=== PATIENT | male | born 1995 | race Caucasian/White ===

== ENCOUNTER 2017-07-27 23:33 | Emergency (ER) | payer OTHER, BC ==
[~2017-07-27] VITALS: Ht 175.3 cm; Wt 117.9 kg
[~2017-07-27 23:33] MED LIST: CELEXA40 MG PO; LORTAB 5/500 501 TAB PO; MEDROL 4MG. DOSE4 MG PO; PHENERGAN 25MG.25 M1 PO; TYLENOL W/CODEI1 TA2 PO; VALIUM5 MG PO; ZITHROMAX Z-PA250 M1 PO; ZOLOFT100 MG PO
[2017-07-27] MEDS ORDERED: INDERAL 20MG. T20 MG PO (23:46)
--- NOTE | 2017-07-28 00:06 | Emergency Room Report ---
History of Present Illness Time Seen by MD Briceno Presenting Problem in Triage Pt arrived:Walked Presenting Problem:S/P FALL FROM LADDER APPROX 7 FEET AND HIT HEAD ON CONCRETE. NOW C/O HEADACHE. DENIES LOSS OF CONSCIOUSNESS. 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 N Clinical Suspician of Infection? N Mental Status: 1 - Regular (Normal Baseline) Sepsis Risk:Low Sepsis Risk Have you (or family members/close friends) recently traveled outside the [place]? N If Yes, where/when: Have you had exposure to infectious disease within the past month? N TB? Other? Specify: Source patient, RN notes reviewed, family, old records Exam Limitations no limitations Comment pt with fall off ladder at work about 6 feet with heqad and neck injury with no chest or abd apin and no loc - occurred just prior to arrival - workman comp Cardiac Chest Pain Chest pain indicative of cardiac No Timing/Duration this evening Severity moderate ALLERGIES Coded Allergies: NO KNOWN ALLERGIES (07/27/17) Home Medications Reported Medications Citalopram Hydrobromide (Celexa) 5 MG PO DAILY Propranolol Hcl (Inderal 20MG. Tablet) 20 MG PO TID #90 History Medical History General CAD? No Angina: No [place]: No Hypertension? No Hyperlipidemia? No CHF? No DVT? No PE? No COPD? No Asthma? No Anemia? No GERD? No Gastric ulcers? No GI Bleed? No Hernia? No Thyroid Problems? No Hypothyroidism? No CVA? No Seizures? No Diabetes? No Renal Insuffiency? No End Stage Renal Disease? No UTI? No Stones? No BPH? No GB Disease: No Nephritic Syndrome? No Asplenia? No Hepatitis? No Sickle Cell Disease? No Arthritis? No Migraines? No Cataracts? No Glaucoma? No MRSA? No HIV? No TB? No Anxiety? No Depression? No Cancer? No Immunization Hx DT/Tetanus 1-4 YRS Flu NEVER Pneumonia NEVER Surgical Hx Previous Surgery?N Social History Smoking Hx Smoker: Current Every Day Smoker Tobacco: Yes Type Cigarettes Alcohol Alcohol: No Drugs none Review of Systems All Other Systems Reviewed and Negative Constitutional denies fever Eyes denies drainage ENT denies: ear discharge, epistaxis, throat pain. Respiratory denies cough, denies shortness of breath, denies wheezing Cardiovascular denies chest pain, denies syncope Gastrointestinal denies abdominal pain, denies diarrhea, denies vomiting Genitourinary denies: dysuria, frequency, hesitancy, hematuria. Musculoskeletal see HPI, denies back pain, denies joint pain, denies joint swelling, neck pain Skin denies rash Psychiatric/Neurological see HPI, headache, denies seizure Physical Exam Vital Signs Vital Signs Date Time Temp Pulse Resp B/P Pulse O2 O2 Flow FiO2 Ox Delivery Rate 07/28 0051 98.5 73 16 139/59 96 07/27 2338 98.2 89 20 96 - WBC >12,000 or <4,000 or 10% bands? 2 or more SIRS Criteria Met? B/P: MAP: Creatinine >2.0? UA output<0.5ml/kg/hr for 2 hrs? Platelet count >100,000? Lactate >2.0mmol/1? INR >1.2 or PTT > than 60 sec? Evidence of Organ Dysfunction? Provider documented clinical suspician of infection? N Sepsis Criteria Count: 1 Sepsis Risk: Low Sepsis Risk General Appearance no apparent distress Eye Exam - bilateral eye PERRL, bilateral eye EOMI Ear, Nose, Throat normal ENT inspection Neck limited range of motion, tender lateral Respiratory Status No: respiratory distress. Lung Sounds bilateral: lungs clear. 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 No Results/Orders Orders Procedure Date/time Status DIET-NOTHING BY MOUTH 07/[address] CERVICAL SPINE W/O CONT. 07/[address] SCAN REQ 07/28 0000 Complete PELVIS AP ONLY 07/28 0000 Active CHEST(2 VIEWS-NOT PORTABLE) 07/[address] HEAD W/O CONTRAST 07/[address] HEAD REQ 07/27 2347 Complete XRAY/CT/US XRAY/CT/US 1 XRAY chest, pelvis XR interpretation by reviewed by me Xray Results no fracture seen XRAY/CT/US 2 CT head, C-spine CT interpretation by discussed w/radiologist Time results known: 52 CT Results no fracture seen Departure Departure Time of Disposition 004 Disposition DC Home or Self Care(routine) Clinical Impression Primary Impression: Head contusion Qualifiers: Encounter type: initial encounter Contusion of head detail: scalp Qualified Code: S00.03XA - Contusion of scalp, initial encounter Secondary Impressions: Cervical strain, acute Qualifiers: Encounter type: initial encounter Qualified Code: S16.1XXA - Strain of muscle, fascia and tendon at neck level, initial encounter Condition STABLE Referrals Taiwo Garcia MD (Family) Patient Instructions DI for Concussion Additional Instructions advil/tyenol and see pcp for follow up - workman comp forms completed Discharge Counseling Counseled pt/family regarding diagnosis, test results, follow up needs ED Critical Care Critical Care No at 0055
[2017-07-28 00:56] VITALS: BP 139/59
--- NOTE | 2017-07-28 05:22 | RADIOLOGY REPORT PS360 ---
PELVIS AP ONLY HISTORY: Fall with injury and pain S/P FALL ORDERING PHYSICIAN: Bear Holder MD PATIENT AGE: 22 years COMPARISON: None FINDINGS: No fracture or dislocation is evident. No significant degenerative change. No lytic or blastic change. The SI joints have an unremarkable appearance. Unremarkable soft tissues. There is a oval sclerotic focus of the intertrochanteric region of the right femur consistent with a bone island. Small bone is present at the left ischial tuberosity IMPRESSION: No acute finding
--- NOTE | 2017-07-28 05:23 | RADIOLOGY REPORT PS360 ---
CHEST(2 VIEWS-NOT PORTABLE) HISTORY: Chest pain following injury S/P FALL ORDERING PHYSICIAN: Bear Holder MD PATIENT AGE: 22 years COMPARISON: 12/18/2008 FINDINGS: The cardiomediastinal silhouette and pulmonary vascularity are within normal limits. The lungs are clear without infiltrates, suspicious nodules, or pleural effusions. No acute bony abnormalities. IMPRESSION: Negative chest, no acute finding
--- NOTE | 2017-07-28 05:34 | RADIOLOGY REPORT PS360 ---
CT CERVICAL SPINE W/O CONT INDICATION: Neck pain following injury FELL OFF LADDER ORDERING PHYSICIAN: Bear Holder MD PATIENT AGE: 22 years COMPARISON: None TECHNIQUE: Axial images are obtained without contrast. Sagittal and coronal reformatted images are reviewed as well. FINDINGS: There is normal alignment. There is slight reversal cervical lordosis which may be due to patient positioning or muscle spasm. No fracture or dislocation. The disc spaces are well-preserved. Lung apices are clear. No prevertebral soft tissue swelling. Scattered small lymph nodes present in the neck. IMPRESSION: 1. No acute fracture. 2. Slight reversal cervical lordosis. 3. Scattered small lymph nodes in the neck
--- NOTE | 2017-07-28 05:36 | RADIOLOGY REPORT PS360 ---
CT HEAD W/O CONTRAST HISTORY: Headache following injury, trauma to the back of the head C/O HEADACHE AFTER FALLING OFF LADDER ORDERING PHYSICIAN: Bear Holder MD PATIENT AGE: 22 years COMPARISON: 04/12/2015 TECHNIQUE: Axial images obtained without contrast. Brain and bone windows reviewed. FINDINGS: No midline shift, mass effect, intracranial hemorrhage, hydrocephalus, or extra-axial fluid collection is evident. The calvarium has an unremarkable appearance. No mastoid effusion. The visualized paranasal sinuses are unremarkable. IMPRESSION: Negative CT head without contrast. No acute finding.
== END 2017-07-28 01:04 | disposition home or self-care (01) ==
LOC: ER 23:33
DX: S00.03XA Contusion of scalp, initial encounter (principal); W11.XXXA Fall on and from ladder, initial encounter; Y92.89 Other specified places as the place of occurrence of the external cause; Y99.0 Civilian activity done for income or pay; Z79.899 Other long term (current) drug therapy; F17.210 Nicotine dependence, cigarettes, uncomplicated; S16.1XXA Strain of muscle, fascia and tendon at neck level, initial encounter; S20.419A Abrasion of unspecified back wall of thorax, initial encounter

== ENCOUNTER 2017-08-11 22:15 | Observation (INO) | payer BC ==
[~2017-08-11] VITALS: Ht 172.7 cm; Wt 129.0 kg
[~2017-08-11 22:15] MED LIST changes: +INDERAL 20MG. T20 MG PO
[2017-08-11 22:18] VITALS: BP 146/89
[2017-08-11 22:33] LABS: URINE BILIRUBIN - DIPSTICK NEGATIVE (NEG); URINE BLOOD NEGATIVE (NEG)
--- NOTE | 2017-08-11 22:35 | Emergency Room Report ---
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 N Clinical Suspician of Infection? N Mental Status: 1 - Regular (Normal Baseline) Sepsis Risk:Possible Sepsis Risk Have you (or family members/close friends) recently traveled outside the [place]? N If Yes, where/when: Have you had exposure to infectious disease within the past month? N TB? Other? Specify: Source patient, RN notes reviewed, old records Exam Limitations no limitations Comment progressive abd pain with nausea today with no fever or diarrhea - Cardiac Chest Pain Chest pain indicative of cardiac No Timing/Duration this evening Severity moderate ALLERGIES Coded Allergies: NO KNOWN ALLERGIES (07/27/17) Home Medications Reported Medications Citalopram Hydrobromide (Celexa) 5 MG PO DAILY Propranolol Hcl (Inderal 20MG. Tablet) 20 MG PO TID #90 History Medical History General CAD? No Angina: No [place]: No Hypertension? No Hyperlipidemia? No CHF? No DVT? No PE? No COPD? No Asthma? No Anemia? No GERD? No Gastric ulcers? No GI Bleed? No Hernia? No Thyroid Problems? No Hypothyroidism? No CVA? No Seizures? No Diabetes? No Renal Insuffiency? No End Stage Renal Disease? No UTI? No Stones? No BPH? No GB Disease: No Nephritic Syndrome? No Asplenia? No Hepatitis? No Sickle Cell Disease? No Arthritis? No Migraines? No Cataracts? No Glaucoma? No MRSA? No HIV? No TB? No Anxiety? No Depression? No Cancer? No Immunization Hx Ped.Immunizations UTD No DT/Tetanus 1-4 YRS Flu NEVER Pneumonia NEVER Surgical Hx Previous Surgery?N Social History Smoking Hx Smoker: Current Every Day Smoker Tobacco: Yes Type Cigarettes Alcohol Alcohol: No Drugs none Review of Systems All Other Systems Reviewed and Negative Constitutional denies fever Eyes denies drainage ENT denies: ear discharge, epistaxis, throat pain. Respiratory denies cough, denies shortness of breath, denies wheezing Cardiovascular denies chest pain, denies palpitations, denies syncope Gastrointestinal see HPI, abdominal pain, denies constipation, nausea, vomiting Genitourinary denies: dysuria, frequency, hesitancy, hematuria. Musculoskeletal denies back pain, denies joint pain, denies joint swelling, denies neck pain Skin denies rash Psychiatric/Neurological denies headache, denies seizure Physical Exam Vital Signs Vital Signs Date Time Temp Pulse Resp B/P Pulse O2 O2 Flow FiO2 Ox Delivery Rate 08/11 2218 98.6 93 20 146/89 96 - WBC >12,000 or <4,000 or 10% bands? 2 or more SIRS Criteria Met? B/P:146/89 MAP:108 Creatinine >2.0? UA output<0.5ml/kg/hr for 2 hrs? Platelet count >100,000? Lactate >2.0mmol/1? INR >1.2 or PTT > than 60 sec? Evidence of Organ Dysfunction? Provider documented clinical suspician of infection? N Sepsis Criteria Count: 2 Sepsis Risk: Possible Sepsis Risk General Appearance no apparent distress Eye Exam - bilateral eye PERRL, bilateral eye EOMI Ear, Nose, Throat normal ENT inspection Neck supple Respiratory Status No: respiratory distress. Lung Sounds bilateral: lungs clear. 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 No Results/Orders Laboratory Tests 08/11/17 2738: Sodium 138, Potassium 3.7, Chloride 102, Carbon Dioxide 27, BUN 13, Creatinine 1.0, Estimated Creat Clear 190, Estimated GFR (MDRD) 92, Glucose 105, Calcium 9.3, Total Bilirubin 0.5, AST 30, ALT 72, Alkaline Phosphatase 80, Total Protein 8.4 H, Albumin 4.3, Globulin 4.1 H, Albumin/Globulin Ratio 1.0 L, Amylase 40, Lipase 76, WBC 13.3 H, RBC 5.84, Hgb 15.5, Hct 46.6, MCV 79.7 L, RDW 13.8, Plt Count 262, MPV 7.1 L, Gran % 80.7 H, Gran # 10.7 H, Lymphocytes % 12.8, Monocytes % 3.5, Eosinophils % 2.5, Basophils % 0.4, Lymphocytes # 1.7, Monocytes # 0.5, Eosinophils # 0.3, Basophils # 0.1, PUBS MCHC 33.2, MCH 26.5 L 08/11/172227: Urine Color YELLOW, Urine Appearance CLEAR, Urine pH 6.0, Ur Specific [place] 1.025, Urine Protein NEGATIVE, Urine Ketones NEGATIVE, Urine Blood NEGATIVE, Urine Nitrate NEGATIVE, Urine Bilirubin NEGATIVE, Urine Urobilinogen 0.2, Ur Leukocyte Esterase NEGATIVE, Urine RBC 3-5, Urine WBC 3-5, Ur Squamous Epith Cells 3-5, Urine Bacteria 1+, Urine Mucus 1+, Urine Glucose NEGATIVE Current Medication Orders Sig/Sylvia Start time Last Medication Dose Route Stop Time Status Admin Sodium Chloride 10 ML PRN PRN 08/11 2230 AC IV 08/12 2223 Orders Procedure Date/time Status DIET-NOTHING BY MOUTH 08/[address] ABD & PELVIS W/O CONTRAST 08/[address] SCAN REQ 08/11 2223 Complete IV SALINE LOCK 08/11 2223 Active URINALYSIS/COMPLETE 08/11 2223 Complete LIPASE 08/11 2223 Complete COMPLETE METABOLIC PANEL 08/11 2223 Complete CBC WITH AUTO DIFF 08/11 2223 Complete AMYLASE 08/11 2223 Complete XRAY/CT/US XRAY/CT/US CT abdomen, pelvis CT interpretation by discussed w/radiologist Time results known: 0001 CT Results abnormal (appendicitis) Departure Departure Time of Disposition 2355 Disposition Still a Patient Clinical Impression Primary Impression: Acute appendicitis Qualifiers: Acute appendicitis type: with localized peritonitis Qualified Code: K35.3 - Acute appendicitis with localized peritonitis Condition STABLE Referrals Taiwo Garcia MD (Family) discussed with dr kenyon DELCID Critical Care Critical Care No at 0001
[2017-08-11 23:08] LABS: HEMOGLOBIN 15.5 g/dL (14.1-18.0); LYMPH # 1.7 K/mm3 (0.7-4.5); LYMPH % 12.8 % (10-50)
[2017-08-12] VITALS (16 sets, daily range): BP systolic 116–153; BP diastolic 50–90
--- NOTE | 2017-08-12 05:54 | RADIOLOGY REPORT PS360 ---
CT ABD PELVIS W/O CONTRAST CLINICAL INDICATION: Epigastric abdominal pain ABD PAIN ORDERING PHYSICIAN: JASON BHARDWAJ MD PATIENT AGE: 22 years COMPARISON: None TECHNIQUE: Axial images obtained with sagittal and coronal reformats. PROCEDURE: Oral Contrast: None IV Contrast: None . FINDINGS: Lung bases are clear. Calcified nodes are present in the left infrahilar region. Mild hepatic steatosis. No radio opaque gallstones. The spleen, adrenal glands, pancreas, kidneys, ureters, and urinary bladder have an unremarkable unenhanced CT appearance. No obstructing renal or ureteral calculi. There is mild prominence of the appendix measuring up to 10 mm in diameter with stranding of the periappendiceal fat and mild thickening of the paracolic gutter consistent with acute appendicitis. No abscess or perforation apparent. No evidence of diverticulitis. The ascending and proximal transverse colon appears thickened but could be related to nondistention. No acute bony anomalies. IMPRESSION: 1. Dilated appendix with surrounding inflammatory changes consistent with acute appendicitis. No evidence of abscess or perforation. 2. Thickening of the ascending and proximal transverse colon which may be due to nondistention or colitis.
--- NOTE | 2017-08-12 07:03 | HISTORY AND PHYSICAL REPORT ---
History of Present Illness Chief Complaint: RIGHT lower quadrant pain History of Present Illness: This is a 22-year-old gentleman who presented overnight to emergency department with increasing RIGHT lower quadrant abdominal pain. No definitive fevers. Poor appetite. Some nausea. A CT scan revealed signs consistent with early appendicitis. Past Medical History Denies: CAD, hypertension, asthma, diabetes mellitus. Surgical History Previous Surgery?N Allergies Coded Allergies: No Known Allergies (08/12/17) Medications: Reported Medications Citalopram Hydrobromide (Celexa) 5 MG PO DAILY Propranolol Hcl (Inderal 20MG. Tablet) 20 MG PO TID #90 Family history Postive for: HTN. Smoking Hx Tobacco: Yes Smoker: Current Every Day Smoker Type: Cigarettes Packs/day: < 1 Pack Are you/the child exposed to second-hand smoke: Yes Alcohol Alcohol: No Hx of Drug Use Drug Use? No Review of Systems Constitutional No: chills. Skin No: bruising. Immune/allergy No: anaphalaxis. Eyes No: discharge. ENT No: nose bleed. Respiratory No: pneumonia. Cardiovascular No: palpitations. GI Positive for: nausea. No: hematemeis, hematochezia, melena. (male) No: hematuria. Musculoskeletal No: thoracic pain. Heme No: petechia. Endocrine No: polydipsia. Neurological No: change in LOC. Psychiatric No: anxious. Physical Exam VS/I&O Vital Signs Date Time Temp Pulse Resp B/P Pulse O2 O2 Flow FiO2 Ox Delivery Rate 08/12 0646 98.3 88 18 116/50 94 ROOM AIR 08/12 0617 18 08/12 0236 18 08/12 0050 81 08/12 0050 98.1 81 18 127/70 08/12 0050 98.1 81 18 127/70 97 ROOM AIR 08/12 0050 97 ROOM AIR 08/12 0031 98.6 93 20 146/89 96 08/12 0018 20 08/11 2218 98.6 93 20 146/89 96 I&O 08/12 0700 Intake Total 439 Output Total Balance 439 Intake, IV 439 Patient 129.02 kg Weight Exam General appearance no acute distress, alert, oriented, well nourished Neck full ROM Respiratory no distress Cardiovascular regular rate and rhythm Abdomen soft (mild TTP in RLQ) Extremities moves all, no evidence of DVT Musculoskeletal full ROM, normal strength, normal tone Neurological CNII-XIII grossly intact, normal speech Psychiatric normal mood Skin no gross abnormalities Dx/assessment/plan Problem List 1. Acute appendicitis Code status: full code Discussed with: patient Plan: Antibiotics Pain management Laparoscopic appendectomy-I have discussed the risks and benefits and he agrees to proceed at 0703
[2017-08-12 07:11] LABS: HEMOGLOBIN 14.5 g/dL (14.1-18.0); LYMPH # 2.1 K/mm3 (0.7-4.5); LYMPH % 18.6 % (10-50)
--- NOTE | 2017-08-12 07:18 | PHARMACY CLINIC NOTE ---
Patient Demographics Patient Demographics Admission date: 08/12/17 Date: 08/12/17 Time: 07 Allergies Coded Allergies: No Known Allergies (08/12/17) HEIGHT- FT: 5 IN: 8.00 K.020 VTE General Information Labs: Laboratory Tests 08/12 08/11 0605 2258 Hematology Hgb (14.1 - 18.0 g/dL) 14.5 15.5 Hct (42.0 - 52.0 %) 42.8 46.6 Plt Count (142 - 424 K/mm3) 236 262 Disclaimer The following section includes nursing documentation that has been pulled in for pharmacy review. Patient's VTE score: 1 Patient's VTE Risk: VERY LOW RISK Clinical trial participant? No VTE prophylaxis [id number] [id number] VTE prophylaxis ordered? Yes Type of prophylaxis/treatment: JIMMIE at 0717
--- NOTE | 2017-08-12 12:00 | Operative Note ---
Surgeon/Diagnoses Surgeon/Dinkey Motor Operator(s) Date of procedure: 08/12/17 Surgeon: MD Jeanne Bhardwaj Dinkey Motor Operator(s): Claudia Jack Diagnoses Pre-op diagnosis: Appendicitis Post-op diagnosis Suppurative appendicitis Procedure Procedure Procedure: Laparoscopic appendectomy Indications: ROSA FERRER is a 22 year-old Male with a history of RIGHT lower quadrant pain and radiographic evidence of appendicitis. Findings: Fairly severe inflammation with suppurative changes along the mid appendix. No sign of perforation. Procedure Description: After informed consent was obtained, the patient was taken to the operating room and placed in the supine position. General anesthesia was induced and his abdomen was prepped and draped in a sterile fashion. After infiltration with local anesthetic and infraumbilical incision was made. A Veress needle was placed in position. The abdomen was insufflated. A 12 mm optical trocar was placed in position. Under direct visualization, a 5 mm trocar was placed in the suprapubic position. An additional 5 mm trocar was placed in the LEFT lower quadrant. Multiple loops of small bowel were noted throughout the RIGHT lower quadrant. The loops of small bowel were somewhat adherent to the RIGHT lateral margin and dissection was quite difficult. Along the RIGHT paracolic gutter the appendix was visualized. The appendix was carefully elevated as periappendiceal fat stranding was carefully dissected. Harmonic corazon were utilized to take the mesoappendix. The JI stapler was then utilized to transect the appendix at its base. The appendix was placed in a retrieval bag and removed to the infraumbilical trocar site. The RIGHT lower quadrant was thoroughly irrigated. No active bleeding or sign of injury was noted. Fascia at the infraumbilical trocar site was reapproximated utilizing the bárbara-close device. Pneumoperitoneum was released as the remaining trocars were removed. All wounds were irrigated and skin was closed with 4-0 Monocryl in a subcuticular fashion. Steri-Strips were applied. The patient's anesthetic agents were reversed and he was extubated prior to transfer to recovery. EBL (ml): 10 Anesthesia: GETA Complications: No immediate Specimens: Appendix Disposition Disposition: Stable to recovery from where he will be transferred back to the floor. at 1200
--- NOTE | 2017-08-12 12:17 | Anesthesia Record ---
Anesthesia Record Part I Total IV fluids: 1800 EBL (ml): 10 Urine Output: 100 B/P: 117/77 % SaO2: 95 Pulse: 79 Resps: 16 Temp: 97.8 Patient is: Drowsy, Nasal O2, Stable Stable to PACU at: 1210 at 1217
--- NOTE | 2017-08-12 12:18 | Anesthesia Record ---
Anesthesia Record Part II Discharge time: 1240 Destination: Second Floor PACU nurse assessment review? Yes Patient is: Nasal O2, Stable Anesthesia complications? No at 1213
[2017-08-12 18:23] LABS: URINE BILIRUBIN - DIPSTICK NEGATIVE (NEG); URINE BLOOD NEGATIVE (NEG)
[2017-08-13 00:32] VITALS: BP 123/50
[2017-08-13 04:17] VITALS: BP 103/46
[2017-08-13 07:03] LABS: LYMPH # 1.4 K/mm3 (0.7-4.5); LYMPH % 12.3 % (10-50)
[2017-08-13 07:41] VITALS: BP 122/56
--- NOTE | 2017-08-13 09:54 | POST-OP PROGRESS NOTE ---
Post Op Subjective Data Patient is post-op day 1 Subjective data: Feels "decent" Post op objective data Vitals,I&O,and Labs: Vital signs, intake and output,and available lab data for the last 24 hours is as noted below. Vital Signs Date Time Temp Pulse Resp B/P Pulse O2 O2 Flow FiO2 Ox Delivery Rate 08/13 0750 98.2 67 20 122/56 97 08/13 0741 98.2 67 20 122/56 97 ROOM AIR 08/13 0625 18 08/13 0417 1 08/13 0417 98.0 86 18 103/46 95 ROOM AIR 08/13 0300 1 08/13 0222 16 08/13 0100 1 08/13 0032 1 08/13 0032 97.6 86 16 123/50 95 ROOM AIR 08/12 2300 1 08/12 2213 1 08/12 2204 16 08/12 2059 1 08/12 2045 98.1 80 16 140/90 95 1 08/12 1935 97.2 65 16 121/69 96 1 08/12 1917 1 08/12 1847 1 08/12 1835 98.1 80 16 140/90 95 1 08/12 1828 2 08/12 1759 16 08/12 1735 97.8 73 18 136/82 94 1 08/12 1657 2 08/12 1635 98.2 70 16 128/67 95 1 08/12 1546 2 08/12 1535 98.2 68 16 134/69 95 1 08/12 1505 2 08/12 1505 98.1 66 16 130/68 94 1 08/12 1435 98.2 75 18 153/76 94 1 08/12 1430 2 08/12 1418 97.8 08/12 1405 97.9 78 16 127/81 94 2 08/12 1359 18 08/12 1335 97.9 72 16 132/76 94 2 08/12 1320 98.3 76 16 128/75 95 2 08/12 1306 18 08/12 1305 98.1 70 18 150/74 94 2 08/12 1250 2 08/12 1250 97.7 71 18 137/77 92 2 08/12 1250 97.7 71 18 137/77 92 2 08/12 1243 97.9 82 16 121/67 95 ROOM AIR 08/12 1240 80 16 130/81 94 ROOM AIR 09/22 1230 88 16 119/71 95 OXYGEN 08/12 1225 76 18 146/80 96 08/12 1220 84 16 127/74 94 OXYGEN 08/12 1217 97.8 79 16 117/77 95 08/12 1210 97.8 79 16 117/77 95 OXYGEN 08/12 1500 08/12 2300 08/13 0700 Intake Total 279 872 4358 Output Total 100 Balance 381 113 5767 Intake, IV 50 447 1120 Intake, Oral 240 480 Intake, Tube 0 Irrigant Output, 0 Emesis Output, 0 Estimated Blood Loss Output, Other 0 Output, Urine 100 Patient 129.02 kg Weight Laboratory Tests Test Result Date Time Chemistry Sodium (mmoL/L) 138 08/11 2258 Potassium (mmoL/L) 3.7 08/11 2258 Chloride (mmoL/L) 102 08/11 2258 Carbon Dioxide (mmoL/L) 27 08/11 2258 BUN (mg/dL) 13 08/11 2258 Creatinine (mg/dL) 1.0 08/11 225 Estimated Creat Clear (ML/MIN) 190 08/11 2258 Estimated GFR (MDRD) (ML/MIN) 92 08/11 2258 Glucose (mg/dL) 105 08/11 2258 Calcium (mg/dL) 9.3 08/11 2258 Total Bilirubin (mg/dL) 0.5 08/11 2258 AST (U/L) 30 08/11 2258 ALT (U/L) 72 08/11 2258 Alkaline Phosphatase (U/L) 80 08/11 2258 Total Protein (gm/dL) 8.4 08/11 2258 Albumin (gm/dL) 4.3 08/11 2258 Globulin (gm/dL) 4.1 08/11 225 Albumin/Globulin Ratio 1.0 08/11 225 Amylase (U/L) 40 08/11 2258 Lipase (U/L) 76 08/11 2258 Hematology WBC (K/MM3) 11.6 08/13 0545 RBC (M/mm3) 5.25 08/13 0545 Hgb (g/dL) 14.0 08/13 0545 Hct (%) 42.5 08/13 0545 MCV (fl) 80.9 08/13 0545 RDW (%) 13.9 08/13 0545 Plt Count (K/mm3) 259 08/13 0545 MPV (fl) 7.6 08/13 05 Gran % (%) 83.0 08/13 05 Gran # (K/mm3) 9.7 08/13 0545 Lymphocytes % (%) 12.3 08/13 0545 Monocytes % (%) 3.9 08/13 0545 Eosinophils % (%) 0.7 08/13 05 Basophils % (%) 0.2 08/13 05 Lymphocytes # (K/mm3) 1.4 08/13 05 Monocytes # (K/mm3) 0.5 08/13 05 Eosinophils # (K/mm3) 0.1 08/13 545 Basophils # (K/MM3) 0.0 08/13 545 PUBS MCHC (g/dl) 32.9 08/13 545 Immunology MCH (pg) 26.6 08/13 05 Urines Urine Color YELLOW 08/12 1025 Urine Appearance CLEAR 08/12 1025 Urine pH 6.0 08/12 1025 Ur Specific [place] 1.015 08/12 1025 Urine Protein (mg/dL) NEGATIVE 08/12 1025 Urine Ketones (mg/dL) NEGATIVE 08/12 1025 Urine Blood NEGATIVE 08/12 1025 Urine Nitrate NEGATIVE 08/12 1025 Urine Bilirubin NEGATIVE 08/12 1025 Urine Urobilinogen (E.U./dL) 0.2 08/12 1025 Ur Leukocyte Esterase NEGATIVE 08/12 1025 Urine RBC (rbc/hpf) NONE 08/12 1025 Urine WBC (wbc/hpf) OCC 08/12 1025 Ur Squamous Epith Cells (#/hpf) NONE 08/12 1025 Urine Bacteria TRACE 08/12 1025 Urine Mucus 1+ 08/11 2228 Urine Glucose NEGATIVE 08/12 1025 Physical Exam VS/I&O Vital Signs Date Time Temp Pulse Resp B/P Pulse O2 O2 Flow FiO2 Ox Delivery Rate 08/13 0750 98.2 67 20 122/56 97 08/13 0741 98.2 67 20 122/56 97 ROOM AIR 08/13 0625 18 08/13 0417 1 08/13 0417 98.0 86 18 103/46 95 ROOM AIR 08/13 0300 1 08/13 0222 16 08/13 0100 1 08/13 0032 1 08/13 0032 97.6 86 16 123/50 95 ROOM AIR 08/12 2300 1 08/12 2213 1 08/12 2204 16 08/12 2059 1 08/12 2045 98.1 80 16 140/90 95 1 08/12 1935 97.2 65 16 121/69 96 1 08/12 1917 1 08/12 1847 1 08/12 1835 98.1 80 16 140/90 95 1 08/12 1828 2 08/12 1759 16 08/12 1735 97.8 73 18 136/82 94 1 08/12 1657 2 08/12 1635 98.2 70 16 128/67 95 1 08/12 1546 2 08/12 1535 98.2 68 16 134/69 95 1 08/12 1505 2 08/12 1505 98.1 66 16 130/68 94 1 08/12 1435 98.2 75 18 153/76 94 1 08/12 1430 2 08/12 1418 97.8 08/12 1405 97.9 78 16 127/81 94 2 08/12 1359 18 08/12 1335 97.9 72 16 132/76 94 2 08/12 1320 98.3 76 16 128/75 95 2 08/12 1306 18 08/12 1305 98.1 70 18 150/74 94 2 08/12 1250 2 08/12 1250 97.7 71 18 137/77 92 2 08/12 1250 97.7 71 18 137/77 92 2 08/12 1243 97.9 82 16 121/67 95 ROOM AIR 08/12 1240 80 16 130/81 94 ROOM AIR 08/12 1230 88 16 119/71 95 OXYGEN 08/12 1225 76 18 146/80 96 08/12 1220 84 16 127/74 94 OXYGEN 08/12 1217 97.8 79 16 117/77 95 08/12 1210 97.8 79 16 117/77 95 OXYGEN I&O 08/13 0700 Intake Total 2337 Output Total 100 Balance 2237 Intake, IV 1617 Intake, Oral 720 Intake, Tube 0 Irrigant Output, 0 Emesis Output, 0 Estimated Blood Loss Output, Other 0 Output, Urine 100 Patient 129.02 kg Weight Exam General appearance no acute distress Respiratory no distress Cardiovascular regular rate and rhythm Abdomen soft (no erythema) Post op patient plan Diagnoses: Suppurative appendicitis Mild leukocytosis Plan: Advance diet, Ambulate, Antibiotics, repeat complete blood count in a.m. This inpt stay is expected to cross 2 MNs from start of care Yes Additional data: The patient will remain on IV antibiotics through the day today secondary to suppurative changes noted intraoperatively. Tentatively plan for discharge tomorrow on PO antibiotics to complete a course for suppurative appendicitis. at 0957
[2017-08-13 16:00] VITALS: BP 126/50
[2017-08-13 19:32] VITALS: BP 117/66
[2017-08-14 04:25] VITALS: BP 132/67
[2017-08-14 06:09] LABS: HEMOGLOBIN 13.1 g/dL (14.1-18.0); LYMPH # 3.3 K/mm3 (0.7-4.5); LYMPH % 40.3 % (10-50)
[2017-08-14 07:24] VITALS: BP 130/69
--- NOTE | 2017-08-14 09:12 | POST-OP PROGRESS NOTE ---
Post Op Subjective Data Patient is post-op day 2 Subjective data: Feels "fine". + flatus. Post op objective data Vitals,I&O,and Labs: Vital signs, intake and output,and available lab data for the last 24 hours is as noted below. Vital Signs Date Time Temp Pulse Resp B/P Pulse O2 O2 Flow FiO2 Ox Delivery Rate 08/14 0826 18 08/14 0724 98.2 68 20 130/69 98 ROOM AIR 08/14 0425 97.7 61 18 132/67 95 ROOM AIR 08/14 0214 18 08/13 2213 18 08/13 1945 97.6 81 18 117/66 96 08/13 1937 18 08/13 1932 97.6 81 18 117/66 96 ROOM AIR 08/13 1609 18 08/13 1600 97.8 78 20 126/50 97 ROOM AIR 08/13 1100 18 08/13 1500 08/13 2300 08/14 0700 Intake Total 960 480 120 Output Total Balance 960 480 120 Intake, IV 120 Intake, Oral 960 480 Laboratory Tests Test Result Date Time Chemistry Sodium (mmoL/L) 138 08/11 2258 Potassium (mmoL/L) 3.7 08/11 225 Chloride (mmoL/L) 102 08/11 225 Carbon Dioxide (mmoL/L) 27 08/11 225 BUN (mg/dL) 13 08/11 225 Creatinine (mg/dL) 1.0 08/11 2258 Estimated Creat Clear (ML/MIN) 190 08/11 2258 Estimated GFR (MDRD) (ML/MIN) 92 08/11 2258 Glucose (mg/dL) 105 08/11 2258 Calcium (mg/dL) 9.3 08/11 2258 Total Bilirubin (mg/dL) 0.5 08/11 225 AST (U/L) 30 08/11 2258 ALT (U/L) 72 08/11 225 Alkaline Phosphatase (U/L) 80 08/11 2258 Total Protein (gm/dL) 8.4 08/11 225 Albumin (gm/dL) 4.3 08/118 Globulin (gm/dL) 4.1 08/11 2258 Albumin/Globulin Ratio 1.0 08/11 225 Amylase (U/L) 40 08/11 2258 Lipase (U/L) 76 08/11 225 Hematology WBC (K/MM3) 8.2 08/14 0540 RBC (M/mm3) 4.92 08/14 0540 Hgb (g/dL) 13.1 08/14 0540 Hct (%) 40.2 08/14 0540 MCV (fl) 81.8 08/14 0540 RDW (%) 13.9 08/14 0540 Plt Count (K/mm3) 204 08/14 0540 MPV (fl) 8.3 08/14 0540 Gran % (%) 52.7 08/14 0540 Gran # (K/mm3) 4.3 08/14 0540 Lymphocytes % (%) 40.3 08/14 0540 Monocytes % (%) 4.1 08/14 0540 Eosinophils % (%) 2.4 08/14 0540 Basophils % (%) 0.5 08/14 0540 Lymphocytes # (K/mm3) 3.3 08/14 0540 Monocytes # (K/mm3) 0.3 08/14 0540 Eosinophils # (K/mm3) 0.2 08/14 0540 Basophils # (K/MM3) 0.0 08/14 0540 PUBS MCHC (g/dl) 32.4 08/14 0540 Immunology MCH (pg) 26.5 08/14 0540 Urines Urine Color YELLOW 08/12 1025 Urine Appearance CLEAR 08/12 102 Urine pH 6.0 08/12 1025 Ur Specific [place] 1.015 08/12 102 Urine Protein (mg/dL) NEGATIVE 08/12 1025 Urine Ketones (mg/dL) NEGATIVE 08/12 102 Urine Blood NEGATIVE 08/12 102 Urine Nitrate NEGATIVE 08/12 102 Urine Bilirubin NEGATIVE 08/12 1025 Urine Urobilinogen (E.U./dL) 0.2 08/12 102 Ur Leukocyte Esterase NEGATIVE 08/12 1025 Urine RBC (rbc/hpf) NONE 08/12 1025 Urine WBC (wbc/hpf) OCC 08/12 1025 Ur Squamous Epith Cells (#/hpf) NONE 08/12 1025 Urine Bacteria TRACE 08/12 1025 Urine Mucus 1+ 08/118 Urine Glucose NEGATIVE 08/12 1025 Physical Exam VS/I&O Vital Signs Date Time Temp Pulse Resp B/P Pulse O2 O2 Flow FiO2 Ox Delivery Rate 08/14 826 18 08/14 724 98.2 68 20 130/69 98 ROOM AIR 08/14 0425 97.7 61 18 132/67 95 ROOM AIR 08/14 0214 18 08/13 2213 18 08/13 1945 97.6 81 18 117/66 96 08/13 1937 18 08/13 1932 97.6 81 18 117/66 96 ROOM AIR 08/13 1609 18 08/13 1600 97.8 78 20 126/50 97 ROOM AIR 08/13 1100 18 I&O 08/14 0700 Intake Total 1560 Output Total Balance 1560 Intake, IV 120 Intake, Oral 1440 Exam General appearance no acute distress Respiratory no distress Cardiovascular regular rate and rhythm Abdomen soft (incision c/d/i) Post op patient plan Diagnoses: Suppurative appendicitis-overall, doing very well status post laparoscopic appendectomy Plan: discharge home This inpt stay is expected to cross 2 MNs from start of care Yes at 0911
[2017-08-14] MEDS ORDERED: AUGMENTIN 875-1 EACH PO (09:14)
[2017-08-14] MEDS ORDERED: NORCO 325 MG-51 TAB PO (09:15)
--- NOTE | 2017-08-14 09:18 | Discharge Summary Report ---
General Admit date: 08/12/17 Discharge date: 08/14/17 Admission Dx: Suppurative appendicitis Discharge Dx: Same Hospital course: The patient presented emergency department with right-sided lower abdominal pain. He had a mild to moderate leukocytosis and radiographic evidence per CT scan of appendicitis. He underwent laparoscopic appendectomy. Please see operative report for detail. Intraoperative findings revealed fairly severe appendicitis with suppurative changes. No sign of perforation noted. He was maintained on IV antibiotics secondary to the above stated suppurative changes. He convalesced well. His leukocytosis resolved. He remained afebrile with stable normal vital signs and was deemed appropriate for discharge on postoperative day 2. Plans for completion of 5 additional days of antibiotics (Augmentin) secondary to suppurative changes were made at time of discharge. Condition at discharge: improved Problem List Medical Problems Acute appendicitis Cervical strain, acute Head contusion Nasal bone fractures Allergies Coded Allergies: No Known Allergies (08/12/17) Med Rec DC summary Medications Reported Medications CITALOPRAM HYDROBROMIDE (Citalopram HBr) 40 MG PO DAILY Propranolol Hcl (Inderal 20MG. Tablet) 20 MG PO TID #90 Txs and Procedures Treatments and Procedures: Laparoscopic appendectomy Labs: Laboratory Tests 08/14/17 0540: WBC 8.2, RBC 4.92, Hgb 13.1 L, Hct 40.2 L, MCV 81.8 L, RDW 13.9, Plt Count 204, MPV 8.3, Gran % 52.7, Gran # 4.3, Lymphocytes % 40.3, Monocytes % 4.1, Eosinophils % 2.4, Basophils % 0.5, Lymphocytes # 3.3, Monocytes # 0.3, Eosinophils # 0.2, Basophils # 0.0, PUBS MCHC 32.4, MCH 26.5 L 08/13/17 0545: WBC 11.6 H, RBC 5.25, Hgb 14.0 L, Hct 42.5, MCV 80.9 L, RDW 13.9, Plt Count 259, MPV 7.6, Gran % 83.0 H, Gran # 9.7 H, Lymphocytes % 12.3, Monocytes % 3.9 , Eosinophils % 0.7, Basophils % 0.2, Lymphocytes # 1.4, Monocytes # 0.5, Eosinophils # 0.1, Basophils # 0.0, PUBS MCHC 32.9, MCH 26.6 L 08/12/17 1025: Urine Color YELLOW, Urine Appearance CLEAR, Urine pH 6.0, Ur Specific [place] 1.015, Urine Protein NEGATIVE, Urine Ketones NEGATIVE, Urine Blood NEGATIVE, Urine Nitrate NEGATIVE, Urine Bilirubin NEGATIVE, Urine Urobilinogen 0.2, Ur Leukocyte Esterase NEGATIVE, Urine RBC NONE, Urine WBC OCC, Ur Squamous Epith Cells NONE, Urine Bacteria TRACE, Urine Glucose NEGATIVE 08/12/17 0605: WBC 11.3 H, RBC 5.31, Hgb 14.5, Hct 42.8, MCV 80.5 L, RDW 13.8, Plt Count 236, MPV 7.4, Gran % 76.1, Gran # 8.6 H, Lymphocytes % 18.6, Monocytes % 4.0, Eosinophils % 0.9, Basophils % 0.5, Lymphocytes # 2.1, Monocytes # 0.5, Eosinophils # 0.1, Basophils # 0.1, [facility] 33.8, MCH 27.2 08/11/17 2258: Sodium 138, Potassium 3.7, Chloride 102, Carbon Dioxide 27, BUN 13, Creatinine 1.0, Estimated Creat Clear 190, Estimated GFR (MDRD) 92, Glucose 105, Calcium 9.3, Total Bilirubin 0.5, AST 30, ALT 72, Alkaline Phosphatase 80, Total Protein 8.4 H, Albumin 4.3, Globulin 4.1 H, Albumin/Globulin Ratio 1.0 L, Amylase 40, Lipase 76, WBC 13.3 H, RBC 5.84, Hgb 15.5, Hct 46.6, MCV 79.7 L, RDW 13.8, Plt Count 262, MPV 7.1 L, Gran % 80.7 H, Gran # 10.7 H, Lymphocytes % 12.8, Monocytes % 3.5, Eosinophils % 2.5, Basophils % 0.4, Lymphocytes # 1.7, Monocytes # 0.5, Eosinophils # 0.3, Basophils # 0.1, [facility] 33.2, MCH 26.5 L 08/11/17 2228: Urine Color YELLOW, Urine Appearance CLEAR, Urine pH 6.0, Ur Specific [place] 1.025, Urine Protein NEGATIVE, Urine Ketones NEGATIVE, Urine Blood NEGATIVE, Urine Nitrate NEGATIVE, Urine Bilirubin NEGATIVE, Urine Urobilinogen 0.2, Ur Leukocyte Esterase NEGATIVE, Urine RBC 3-5, Urine WBC 3-5, Ur Squamous Epith Cells 3-5, Urine Bacteria 1+, Urine Mucus 1+, Urine Glucose NEGATIVE at 0918
[2017-08-14 09:55] VITALS: BP 130/69
== END 2017-08-14 09:55 | disposition home or self-care (01) ==
LOC: ER 22:15 → 2ND 08-12
PROVIDERS: Emergency Medicine; Surgery
PROC: 0DTJ4ZZ Resection of Appendix, Percutaneous Endoscopic Approach (ICD-10-PCS; principal; 2017-08-12 12:00)
DX: K35.89 Other acute appendicitis (principal)
CPT/HCPCS: G0378; J0131; J1335; J2405; J2543; J2710